=== PATIENT | female | born 1955 | race African-American/Black ===

== ENCOUNTER 2017-11-15 06:08 | Observation (INO) ==
[2017-11-15] MEDS ORDERED: Chlorhexidine Gluconate 2% 1 Pack (2 Cloths) TOPICAL ONE (06:34)
[2017-11-15] MEDS ORDERED: Metoprolol Tartrate 25 MG Tablet PO ONE (06:34)
[2017-11-15] MEDS ORDERED: ceFAZolin 2 GM IV; once IV.SIG ONE (06:45)
[2017-11-15] MEDS ORDERED: Heparin - SQ 10,000 UNITS/ML Vial SQ ONE (06:45)
[2017-11-15] MEDS ORDERED: Sodium Chlor 0.9% Inj 500 ML IV.SIG SCH (07:00)
[2017-11-15] MEDS ORDERED: Lidocaine PF 1% Inj 5 ML Syringe OTHER ONE (08:30)
[2017-11-15] MEDS ORDERED: Phenylephrine/NS 1000 MCG/10ML Syringe IV.PUSH ONE (08:30)
[2017-11-15] MEDS ORDERED: Electrolytes R/Dextrose 5% Inj 1,000 ML IV.CONT ONE (08:30)
[2017-11-15] MEDS ORDERED: Glycopyrrolate Inj 1 MG/5 ML Syringe IV.PUSH ONE (08:30)
[2017-11-15] MEDS ORDERED: Neostigmine Inj 5 MG/5 ML Syringe IV.PUSH ONE (08:30)
[2017-11-15] MEDS ORDERED: Methylene Blue Inj 100 MG/10 ML Vial OTHER ONE (10:51)
[2017-11-15] MEDS ORDERED: Lidocaine 1%/Epinephrine 1:100,000 Inj 20 ML Vial INFILTRATN ONE (10:54)
[2017-11-15] MEDS ORDERED: LORazepam 0.5 MG Tablet PO PRN (12:05)
[2017-11-15] MEDS ORDERED: Sugammadex Inj 200 MG/2 ML Vial IV.PUSH ONE (12:07)
[2017-11-15] MEDS ORDERED: fentaNYL Citrate Inj 100 MCG/2 ML Ampul ONE (12:19)
[2017-11-15] MEDS ORDERED: *morphine SULFATE 4 MG/ML PERIprocedure ONLY ONE ×3 (12:39→13:20)
[2017-11-15] MEDS ORDERED: *Meperidine Inj 25 MG/ML Vial PERIprocedural Use ONLY ONE (12:47)
[2017-11-15] MEDS: KCL 20 mEq/D5W/NaCl 0.45% Inj 1,000 ML IV.CONT SCH ×2 (13:24→23:58)
[2017-11-15] MEDS: Ketorolac Inj 30 MG/ML (IVP) Vial IV.PUSH SCH ×2 (17:47→23:45)
[2017-11-16 05:45] LABS: Baso % (Auto) 0.1 % (0.0-2.0); Hematocrit 39.4 % (35.0-46.0); Lymph # (Auto) 0.7 th/mm3 (1.0-4.8); Lymph % (Auto) 6.6 % (9.0-44.0); Mean Corpuscular HGB Conc 32.9 % (32.0-36.0); Mean Corpuscular Hemoglobin 27.2 pg (27.0-34.0); Mean Corpuscular Volume 82.5 fL (80.0-100.0); Mean Platelet Volume 9.7 fL (7.0-11.0); Mono # (Auto) 0.7 th/mm3 (0.0-0.9); Neut # (Auto) 9.1 th/mm3 (1.8-7.7); Neut % (Auto) 86.3 % (16.0-70.0); Platelet Count 167 th/mm3 (150-450); Red Blood Count 4.78 mil/mm3 (4.00-5.30); Red Cell Distribution Width 13.8 % (11.6-17.2); White Blood Count 10.5 th/mm3 (4.0-11.0)
[2017-11-16 05:59] LABS: Calcium 8.1 mg/dL (8.5-10.1); Carbon Dioxide 29.4 meq/L (21.0-32.0); Potassium 3.4 meq/L (3.5-5.1)
[2017-11-16] MEDS ORDERED: Levothyroxine 75 MCG Tablet PO SCH (06:00)
[2017-11-16] MEDS: Ketorolac Inj 30 MG/ML (IVP) Vial IV.PUSH SCH ×2 (06:13→12:18)
[2017-11-16] MEDS: KCL 20 mEq/D5W/NaCl 0.45% Inj 1,000 ML IV.CONT SCH ×2 (08:10)
[2017-11-16] MEDS ORDERED: hydroCHLOROthiazide 25 MG Tablet PO ONE (08:30)
[2017-11-16] MEDS ORDERED: LOSARTAN HYDROCHLOROTHIAZIDE PO SCH (09:00)
--- NOTE | 2017-11-16 09:41 | MD ---
cc: Bibi Bryan MD,Daren eHad,Dano HERNANDEZ DATE OF DISCHARGE: 11/16/2017 PROCEDURE: 11/15/2017: Robotic-assisted laparoscopic hysterectomy, bilateral salpingo-oophorectomy, lysis of adhesions. DIAGNOSIS: Endometrial cancer. HOSPITAL COURSE: She did well in the early postop period; hemodynamically stable, tolerating oral intake. Gan catheter removed pending voiding. OBJECTIVE: Ins and outs: 3300/17.25. LABORATORY DATA: H and H 13/39.4, potassium slightly low at 3.4, creatinine is 1.05 consistent with baseline. PHYSICAL EXAMINATION: VITAL SIGNS: Afebrile, pulse 71-80, respirations 16-18, blood pressure 147-148/80-82, O2 saturation greater than or equal to 94% while asleep 98% while awake; alert and oriented x3, no acute distress. LUNGS: Clear. Mild basilar rales. CARDIOVASCULAR: Regular rate and rhythm. ABDOMEN: Soft. Incision is clean and dry. GYNECOLOGIC: No bleeding. EXTREMITIES: Nontender. ASSESSMENT: Postoperative day number 1, doing well in her early postoperative period. Preliminary pathology, findings and steps taken were discussed and reviewed, activities and restrictions are again reviewed. Questions were asked and answered. She expressed good understanding. PLAN: I anticipate she will meet the criteria for discharge to home today. She is to contact our office to schedule a followup in 2 weeks. She is to resume prior medications. She will have a prescription for Percocet for pain and she is to contact our office should she have any questions between now and the time of scheduled followup. MD NELLY Ozuna/linda , 07:34 AM , 07:40 AM
[2017-11-16 12:27] VITALS: BP 173/100; PULSE 64; RESP 16; TEMP 98.7; O2SAT 98
--- NOTE | 2017-11-23 16:38 | MP ---
cc: Bibi Bryan MD,Daren MCKEON,HUMZA HERNANDEZ DATE OF OPERATION: 11/15/2017 PREOPERATIVE DIAGNOSIS: Grade 1 endometrial cancer. POSTOPERATIVE DIAGNOSIS: Grade 1 endometrial cancer. PROCEDURE: Robotic-assisted laparoscopic hysterectomy, bilateral salpingo-oophorectomy, lysis of adhesions. SURGEON: Bibi Bryan MD [employer]: [employer] ANESTHESIA: General endotracheal anesthesia. ESTIMATED BLOOD LOSS: 150 mL URINE OUTPUT: 450 mL IV FLUIDS: 2000 mL HISTORY AND INDICATIONS: This is a 61-year-old female with postmenopausal bleeding, thickened endometrial stripe. Biopsy showed grade 1 endometrial adenocarcinoma. She was counseled regarding these findings and was in favor of surgical management. She was seen in the preop holding area where findings and plan of care were again discussed. Questions were asked and answered. She expressed good understanding and agrees to move forward with surgery. FINDINGS: The uterine cavity sounds to approximately 9 cm. The uterus, tubes, and ovaries grossly appeared normal. There were no overtly enlarged lymph nodes. There were no peritoneal implants. No other significant abnormality detected. Frozen section of the uterus showed it to be approximately a 3 cm tumor that was primarily exophytic into the endometrial cavity. It was estimated that there was only perhaps 10% myometrial invasion. There was no cervical extension and it was a low-grade tumor. DESCRIPTION OF PROCEDURE: She was taken to the operating room and placed in dorsal lithotomy position, after general endotracheal anesthesia was administered. A timeout was undertaken. She was identified by site recognition and hospital ID bracelet and the proposed procedure was reviewed and confirmed. She was carefully positioned in padded Domenic stirrups. Her arms were padded and secured to the sides. She was further secured to the operating table with egg crate padding and tape in a cross-chest over the shoulder fashion. All sites noted to be properly aligned with no malalignments or pressure points. She was prepped in sterile fashion and draped below the waist, placed in lithotomy position. The cervix was grasped. Uterine cavity was sounded. Cervix was dilated and a standard VCare manipulator was inserted and secured in the usual fashion. Gan catheter was placed in the bladder. She was turned to low lithotomy position, change of sterile gloves was undertaken and we completed draping in anticipation of laparoscopy. After confirming that an orogastric tube was in the stomach on suction, with manual elevation of the abdominal wall and direct laparoscopic visualization a 5 mm cannula was introduced into the left upper quadrant and carbon dioxide gas was insufflated and an atraumatic entry was confirmed. A 12 mm cannula was placed in the midline above the umbilicus. An 8 mm cannula was placed in the right upper quadrant and left lateral quadrant and peritoneal washings were obtained for cytology. She was placed in Trendelenburg position. The small bowel was folded back on its mesenteric root. Three Ray-Ada sponges were placed around the root of the small-bowel mesentery and the robotic system was brought into the operative field. The robotic system was docked in the usual fashion. Monopolar scissors, fenestrated bipolar forceps and ProGrasp manipulator were placed in arms #1, 2, and 3 respectively and I took my place at the surgeon's console. Some adhesions had been taken down from the omentum attached to the left upper quadrant of the abdomen. Some additional adhesions between the colon and left pelvic sidewall were taken down with sharp dissection and some filmy adhesions in the cul-de-sac were taken down with sharp dissection. The right round ligament was isolated, cauterized, transected. The anterior and posterior leafs of the broad ligament were opened. The right ureter was identified. The right infundibulopelvic ligament was isolated. The intervening peritoneum was opened. The infundibulopelvic ligament was isolated to the level of the pelvic brim where it was cauterized and transected. Posterior peritoneum was opened along the right side of the uterus and cervix and the right vesicouterine peritoneum was dissected off the lower uterine segment and cervix. The right uterine vessels were skeletonized, cauterized and transected as were the cardinal, paracervical and uterosacral ligaments. Attention was directed toward the left side, where the left round ligament was isolated, cauterized, and transected. The anterior and posterior leafs of the broad ligament were opened. The left ureter was identified. The left infundibulopelvic ligament was isolated and the intervening peritoneum was opened. The infundibulopelvic ligament was isolated to the level of the pelvic brim where it was cauterized and transected. Posterior peritoneum was opened along the left side of the uterus and cervix. The left vesicouterine peritoneum was dissected off the lower uterine segment and cervix. Left uterine vessels were skeletonized and then they were cauterized and transected as were the cardinal, paracervical and uterosacral ligaments. Circumferential colpotomy was performed the cervix from the upper vagina and the specimen was withdrawn transvaginally which included uterus, cervix, tubes and ovaries and a pneumo-occluder balloon was placed in the vagina to maintain pneumoperitoneum. Instruments 1 and 3 were exchanged for needle drivers as 0 Vicryl suture was introduced. The vaginal cuff was closed starting at the left corner with full-thickness closure, incorporating the edge of the uterosacral ligament and posterior peritoneum, was tied securely and the running continuous full-thickness closure was carried across the vaginal cuff, held on countertraction until the contralateral corner was similarly secured and tied and the needle was cut and removed. The pelvis was thoroughly irrigated. Small bleeders were rendered hemostatic with bipolar cautery. Integrity of the bladder was confirmed by filling the bladder and observing that the wall was intact with no defects and there was a good margin between the edge of the bladder and the vaginal cuff suture line. Good peristalsis of ureters bilaterally and the bladder was drained. Frozen section came back showing a well-differentiated tumor that was minimally invasive, predominantly exophytic. No other risk factors, so it was felt that further surgical dissection would be associated with morbidity that exceeded the benefit. It was felt that all reasonable surgical objectives had been completed. Woody hemostatic powder was placed across the vaginal cuff and lateral pelvic sidewalls. The robotic instruments were removed and the robotic system was disengaged from the operative field. I reentered the bedside under sterile condition. Each of the 3 Ray-Ada sponges that had been placed were now removed laparoscopically. Each were inspected and noted to be removed in their entirety. Preliminary counts were correct. Visual inspection confirmed no remaining foreign objects in the peritoneal cavity. The 12 mm fascial defect was closed with interrupted 0 Vicryl sutures using a needle fascial closure apparatus. They were tied securely which rendered the fascia completely airtight and hemostatic. The remainder of the cannulas were withdrawn. Carbon dioxide gas was removed. 3-0 Vicryl subcutaneous, 3-0 Vicryl subcuticular and Steri-Strips were used to close these incisions. She was returned to dorsal lithotomy position. Pelvic exam confirmed the vaginal cuff was well supported. There were no vaginal lacerations. No remaining foreign objects in the vagina. Final counts were correct. She was returned to dorsal supine position and was pending reversal of anesthesia, when I left the operating room to precede her to the postanesthesia care unit. MD NELLY Ozuna/rere/markus , 01:50 PM , 02:24 PM DANDRE
== END 2017-11-16 14:21 | disposition home or self-care (01) ==
LOC: HSDC 06:08 → HSDI 06:08 → HCIN 13:52
PROVIDERS: ADMIT Obstetrics & Gynecology Gynecologic Oncology; ATTEND Obstetrics & Gynecology Gynecologic Oncology